=== PATIENT | female | born 1995 | race Caucasian/White ===

== ENCOUNTER 2019-04-18 19:12 | Emergency (ER) | payer OTHER ==
[2019-04-18 19:17] VITALS: BP 129/79
[2019-04-18] MEDS ORDERED: TRIAMCIN/MOXIFLOX OPHTHALMIC 0.6 ML VIAL IO STA (19:58)
--- NOTE | 2019-04-18 20:00 | ED Physician Documentation ---
PD HPI OPHTHO - Stated complaint Stated Complaint: L EYE SWELLING - Chief complaint Chief Complaint: Heent - History obtained from History obtained from: Patient - History of Present Illness Timing - onset: Today Timing - duration: Hours Timing - details: Gradual onset Pain level max: 3 Pain level now: 3 Severity Comments: moderate Location: Left (eye swelling, redness, tearing) Quality / character: Aching, Throbbing Associated symptoms: Redness, Swelling Contributing factors: Wears contacts. No: Exposed to conjunctivitis, Recent URI, FB, Blunt trauma Similar symptoms before: Has not had sx before Recently seen: Not recently seen - Treatment prior to arrival Treatment prior to arrival: warm water Review of Systems Ten Systems: 10 systems reviewed and negative Constitutional: denies: Fever Eyes: denies: Loss of vision Ears: reports: Reviewed and negative Nose: reports: Reviewed and negative Skin: reports: Reviewed and negative Neurologic: reports: Reviewed and negative Immunocompromised: reports: Reviewed and negative PD PAST MEDICAL HISTORY - Past Medical History Past Medical History: No - Past Surgical History Past Surgical History: No - Present Medications Home Medications: Ambulatory Orders Medication Instructions Recorded Confirmed Moxifloxacin HCl [Moxifloxacin] 3 ml OP Q3HR 5 Days #1 bottle 04/18/19 - Allergies Allergies/Adverse Reactions: Allergies Allergy/AdvReac Type Severity Reaction Status Date / Time NSAIDS (Non-Steroidal Allergy Hives Verified 04/18/19 19:17 Anti-Inflamma - Social History Does the pt smoke?: No Smoking Status: Never smoker Does the pt drink ETOH?: Yes Does the pt have substance abuse?: No - Immunizations Immunizations are current?: Yes PD ED PE NORMAL - Vitals Vital signs reviewed: Yes - General General: Alert and oriented X 3, No acute distress - HEENT HEENT: Atraumatic, PERRL, EOMI, Moist mucous membranes, Pharynx benign - Neck Neck: Supple, no meningeal sign, No JVD - Cardiac Cardiac: RRR - Respiratory Respiratory: No respiratory distress - Abdomen Abdomen: Non distended - Female Female : Deferred - Rectal Rectal: Deferred - Derm Derm: Normal color, Warm and dry, No rash - Extremities Extremities: No deformity - Neuro Neuro: Alert and oriented X 3 Eye Opening: Spontaneous Motor: Obeys Commands Verbal: Oriented GCS Score: 15 - Psych Psych: Normal mood, Normal affect PD ED PE EXPANDED - Eyes Eyes: Left eye, Eyelid swelling, Injected conj/sclera, Normal corneas. No: Exudate, Subconj hemorrhage Results - Vitals Vitals: Vital Signs - 24 hr 04/18/19 19:16 Temperature 36.5 C Heart Rate 67 Respiratory 17 Rate Blood Pressure 129/79 O2 Saturation 99 Oxygen O2 Source Room air PD MEDICAL DECISION MAKING - ED course Complexity details: considered differential, d/w patient ED course: ddx- allergic conjunctivitis, bacterial conjunctivitis, viral conjunctivitis, iritis, scleritis, episcleritis. Pt with conjunctival injection, no pain with light, no consensual photophobia to suggest iritis. No hx of trauma Not itchy. Pt w/tearing, does wear contacts. Will treat with moxifloxacin for possible bacterial conjunctivitis. Departure - Departure Disposition: 01 Home, Self Care Clinical Impression: Conjunctivitis, Foreign body in esophagus Condition: Stable Record reviewed to determine appropriate education?: Yes Follow-Up: ROBERTO VELEZ MD [Primary Care Provider] - As Needed Prescriptions: Moxifloxacin HCl [Moxifloxacin] 3 ml OP Q3HR 5 Days #1 bottle Comments: Use the drops every 3 hours when awake for 2 days then every 6 hours for 5 days. Discharge Date/Time: 04/18/19 20:15
== END 2019-04-18 20:15 | disposition home or self-care (01) ==
LOC: ED 19:12
DX: H10.9 Unspecified conjunctivitis (principal)
CPT/HCPCS: 99283